=== PATIENT | male | born 1965 | race Hispanic/Latino ===

== ENCOUNTER 2021-01-21 19:47 | Emergency (ER) | payer OTHER ==
[2021-01-21 21:09] LABS: Absolute Lymphocytes (CBC) 1.3 K/uL (0.7-4.9); Basophils % 0.5 % (0-1.3); Hematocrit 40.1 % (39.6-49.0); Lymphocytes % 19.3 % (15.3-44.8); MPV 8.1 fL (7.6-11.3); RBC Red Blood Cell Count 4.71 M/uL (4.33-5.43)
[2021-01-21 21:27] LABS: Protime INR 1.24
[2021-01-21 21:35] LABS: ALT/SGPT 46 U/L (12-78); AST/SGOT 34 U/L (15-37); Albumin 3.6 g/dL (3.4-5.0); Alkaline Phosphatase 73 U/L (45-117); BUN Blood Urea Nitrogen 10 mg/dL (7-18); Bicarbonate 27 mmol/L (21-32); Bilirubin Direct < 0.1 mg/dL (0-0.2); Bilirubin Total 0.3 mg/dL (0.2-1.0); Glucose Level 89 mg/dL (74-106); Magnesium 2.1 mg/dL (1.8-2.4); NT PRO-BNP 33 pg/mL (<125); Potassium 3.4 mmol/L (3.5-5.1); Protein, Total 7.3 g/dL (6.4-8.2); Sodium Level 138 mmol/L (136-145); Troponin (Emerg Dept Use Only) < 0.02 ng/mL (0.0-0.045)
[2021-01-21] MEDS ORDERED: ACETAMINOPHEN 500 MG TAB ONE (22:23)
--- NOTE | 2021-01-21 23:58 | ER ---
Nurse's Notes [facility] Name: Eric Berry Age: 55 yrs Sex: Male : 1965 Arrival Date: 01/21/2021 Time: 19:52 Bed 2 Private MD: Diagnosis: Coronavirus infection, unspecified Presentation: 01/21 20:03 Chief complaint: Patient states: Covid+ 01/21/2021/ S/S started 01/15/2021. Today fever ca1 started and just won't go down. Ibuprofen last taken at 1530. Coronavirus screen: Client denies travel out of the [place] in the last 14 days. At this time, the client does not indicate any symptoms associated with coronavirus-19. Ebola Screen: Patient negative for fever greater than or equal to 101.5 degrees Fahrenheit, and additional compatible Ebola Virus Disease symptoms Patient denies exposure to infectious person. Patient denies travel to an Ebola-affected area in the 21 days before illness onset. No symptoms or risks identified at this time. 20:03 Method Of Arrival: Ambulatory ca1 20:06 Initial Sepsis Screen: Does the patient meet any 2 criteria? No. Patient's initial ca1 sepsis screen is negative. Does the patient have a suspected source of infection? No. Patient's initial sepsis screen is negative. Risk Assessment: Do you want to hurt yourself or someone else? Patient reports no desire to harm self or others. Onset of symptoms was January 21, 2021. 20:06 Acuity: PRESLEY 3 ca1 Historical: - Allergies: 20:06 No Known Allergies; ca1 - Home Meds: 20:06 None [Active]; ca1 - PMHx: 20:06 None; ca1 - PSHx: 20:06 None; ca1 - Immunization history:: Flu vaccine is up to date. - Social history:: Smoking status: Patient denies any tobacco usage or history of. Screenin:03 Abuse screen: Denies threats or abuse. Denies injuries from another. Nutritional rr5 screening: No deficits noted. Tuberculosis screening: No symptoms or risk factors identified. Fall Risk None identified. Total Vidal Fall Scale indicates No Risk (0-24 pts). Assessment: 20:05 General: Appears in no apparent distress. comfortable, Behavior is calm, cooperative, rr5 appropriate for age. Pain: Complains of pain in body Quality of pain is described as aching, Pain began gradually, Is intermittent. Neuro: Level of Consciousness is awake, alert, obeys commands, Oriented to person, place, time. Cardiovascular: Capillary refill < 3 seconds Patient's skin is warm and dry. Respiratory: Reports covid positive Airway is patent Respiratory effort is even, unlabored, Respiratory pattern is regular, symmetrical. GI: No signs and/or symptoms were reported involving the gastrointestinal system. : No signs and/or symptoms were reported regarding the genitourinary system. EENT: No signs and/or symptoms were reported regarding the EENT system. Derm: Skin is intact, is healthy with good turgor, Skin temperature is warm. Musculoskeletal: Circulation, motion, and sensation intact. Capillary refill < 3 seconds, Reports pain in body. 21:00 Reassessment: Patient appears in no apparent distress at this time. Patient and/or rr5 family updated on plan of care and expected duration. Pain level reassessed. Patient is alert, oriented x 3, equal unlabored respirations, skin warm/dry/pink. 22:00 Reassessment: Patient appears in no apparent distress at this time. T 100.2 ED provider rr5 informed with order made and carried out. 23:20 Reassessment: Patient appears in no apparent distress at this time. Patient and/or rr5 family updated on plan of care and expected duration. Pain level reassessed. Patient is alert, oriented x 3, equal unlabored respirations, skin warm/dry/pink. additional orders made and carried out. 01/22 00:03 Reassessment: Patient appears in no apparent distress at this time. Patient is alert, rr5 oriented x 3, equal unlabored respirations, skin warm/dry/pink. discharge instruction given and explained without complaintsmade. Vital Signs: 01/21 20:03 BP 128 / 85; Pulse 92; Resp 18; Temp 98.3; Pulse Ox 98% on R/A; mg2 20:03 Weight 95.25 kg (R); Height 5 ft. 9 in. (175.26 cm) (R); Pain 0/10; ca1 21:38 BP 128 / 78; Pulse 86; Resp 18; Pulse Ox 95% on R/A; mg2 22:02 Temp 100.2(O); mg2 23:13 BP 119 / 76; Pulse 89; Resp 18; Pulse Ox 96% on R/A; mg2 01/22 00:03 BP 120 / 90; Pulse 90; Resp 18; Temp 99.3; Pulse Ox 100% on R/A; mg2 01/21 20:03 Body Mass Index 31.01 (95.25 kg, 175.26 cm) ca1 ED Course: 01/21 19:52 Patient arrived in ED. am4 19:58 Ari Tay, RN is Primary Nurse. rr5 20:05 Patient has correct armband on for positive identification. Placed in gown. Bed in low rr5 position. Call light in reach. Pulse ox on. NIBP on. 20:06 Arm band placed on right wrist. ca1 20:07 Triage completed. ca1 20:09 Clay Moreno MD is Attending Physician. mh7 20:19 No provider procedures requiring assistance completed. mg2 20:40 Inserted saline lock: 20 gauge in right antecubital area, using aseptic technique. mg2 Blood collected. 23:20 Inserted saline lock: 22 gauge in right hand, using aseptic technique. Blood collected. rr5 23:20 First set of blood cultures drawn by me. rr5 01/22 00:04 IV discontinued, intact, bleeding controlled, No redness/swelling at site. Pressure mg2 dressing applied. 12:47 XRAY Chest (1 view) In Process Unspecified. EDMS Administered Medications: 01/21 22:02 Drug: Tylenol 1000 mg Route: PO; mg2 23:58 Follow up: Response: No adverse reaction mg2 23:03 Not Given (Physician Discretion): Tylenol 650 mg PO once mg2 Outcome: 23:57 Discharge ordered by . 7 01/22 00:04 Discharged to home ambulatory. mg2 Condition: good Discharge instructions given to patient, Instructed on discharge instructions, follow up and referral plans. Demonstrated understanding of instructions, follow-up care. 00:04 Patient left the ED. mg2 Signatures: Dispatcher [employer] EDMS Kushal Fisher RN RN mg2 Ari Tay, DOREEN LOGAN rr5 Nargis Goss RN RN ca1 Clay Moreno MD MD Char Cook am4 Corrections: (The following items were deleted from the chart) 01/21 21:39 21:38 BP 128 / 78; Pulse 86bpm; Resp 18bpm; Pulse Ox 94% RA; mg2 mg2
--- NOTE | 2021-01-21 23:58 | EDPHYS ---
Physician Documentation [facility] Name: Eric Berry Age: 55 yrs Sex: Male : 1965 Arrival Date: 01/21/2021 Time: 19:52 Bed 2 Private MD: ED Physician Clay Moreno HPI: 01/21 21:25 This 55 yrs old Male presents to ER via Ambulatory with complaints of COVID+. [facility] 21:25 The patient reports fever, that was measured at 101 degrees Fahrenheit. Onset: The [facility] symptoms/episode began/occurred today. Modifying factors: unaware of sick contact. Associated signs and symptoms: Pertinent positives: cough, that is dry, Pertinent negatives: abdominal pain, altered mental status, arthralgias, backache, chest pain, chills, diarrhea, pulling at ears, earache, headache, hemoptysis, myalgias, nausea, night sweats, runny nose, sinus congestion, sinus drainage, skin rash, shortness of breath, sore throat, swelling, vomiting. 21:26 Severity of symptoms: At their worst the symptoms were moderate today, in the emergency [facility] department the symptoms have improved markedly. States that he tested positive for COVID today at outside facility. Historical: - Allergies: 20:06 No Known Allergies; ca1 - Home Meds: 20:06 None [Active]; ca1 - PMHx: 20:06 None; ca1 - PSHx: 20:06 None; ca1 - Immunization history:: Flu vaccine is up to date. - Social history:: Smoking status: Patient denies any tobacco usage or history of. ROS: 21:26 Eyes: Negative for injury, pain, redness, and discharge, ENT: Negative for injury, mh7 pain, and discharge, Neck: Negative for injury, pain, and swelling, Cardiovascular: Negative for chest pain, palpitations, and edema, Abdomen/GI: Negative for abdominal pain, nausea, vomiting, diarrhea, and constipation, Back: Negative for injury and pain, : Negative for injury, bleeding, discharge, and swelling, MS/Extremity: Negative for injury and deformity, Skin: Negative for injury, rash, and discoloration, Neuro: Negative for headache, weakness, numbness, tingling, and seizure, Psych: Negative for depression, anxiety, suicide ideation, homicidal ideation, and hallucinations, Allergy/Immunology: Negative for hives, rash, and allergies, Endocrine: Negative for neck swelling, polydipsia, polyuria, polyphagia, and marked weight changes, Hematologic/Lymphatic: Negative for swollen nodes, abnormal bleeding, and unusual bruising. Exam: 21:26 Constitutional: This is a well developed, well nourished patient who is awake, alert, mh7 and in no acute distress. Head/Face: Normocephalic, atraumatic. Eyes: Pupils equal round and reactive to light, extra-ocular motions intact. Lids and lashes normal. Conjunctiva and sclera are non-icteric and not injected. Cornea within normal limits. Periorbital areas with no swelling, redness, or edema. Neck: Trachea midline, no thyromegaly or masses palpated, and no cervical lymphadenopathy. Supple, full range of motion without nuchal rigidity, or vertebral point tenderness. No Meningismus. Chest/axilla: Normal chest wall appearance and motion. Nontender with no deformity. No lesions are appreciated. Cardiovascular: Regular rate and rhythm with a normal S1 and S2. No gallops, murmurs, or rubs. Normal PMI, no JVD. No pulse deficits. Respiratory: Lungs have equal breath sounds bilaterally, clear to auscultation and percussion. No rales, rhonchi or wheezes noted. No increased work of breathing, no retractions or nasal flaring. Abdomen/GI: Soft, non-tender, with normal bowel sounds. No distension or tympany. No guarding or rebound. No evidence of tenderness throughout. Back: No spinal tenderness. No costovertebral tenderness. Full range of motion. Skin: Warm, dry with normal turgor. Normal color with no rashes, no lesions, and no evidence of cellulitis. MS/ Extremity: Pulses equal, no cyanosis. Neurovascular intact. Full, normal range of motion. Neuro: Awake and alert, GCS 15, oriented to person, place, time, and situation. Cranial nerves II-XII grossly intact. Motor strength 5/5 in all extremities. Sensory grossly intact. Cerebellar exam normal. Normal gait. Psych: Awake, alert, with orientation to person, place and time. Behavior, mood, and affect are within normal limits. Vital Signs: 20:03 BP 128 / 85; Pulse 92; Resp 18; Temp 98.3; Pulse Ox 98% on R/A; mg2 20:03 Weight 95.25 kg (R); Height 5 ft. 9 in. (175.26 cm) (R); Pain 0/10; ca1 21:38 BP 128 / 78; Pulse 86; Resp 18; Pulse Ox 95% on R/A; mg2 22:02 Temp 100.2(O); mg2 23:13 BP 119 / 76; Pulse 89; Resp 18; Pulse Ox 96% on R/A; mg2 03 00:03 BP 120 / 90; Pulse 90; Resp 18; Temp 99.3; Pulse Ox 100% on R/A; mg2 01/21 20:03 Body Mass Index 31.01 (95.25 kg, 175.26 cm) ca1 MDM: 01/21 23:55 Differential diagnosis: viral Infection, bacterial infection, URI, bronchitis, mh7 pneumonia. Data reviewed: vital signs, nurses notes, lab test result(s), cardiac enzymes, CBC, electrolytes, EKG, radiologic studies, plain films. Data interpreted: Pulse oximetry: on room air is 96 %. Interpretation: normal. Counseling: I had a detailed discussion with the patient and/or guardian regarding: the historical points, exam findings, and any diagnostic results supporting the discharge/admit diagnosis, lab results, radiology results, the need for outpatient follow up. Response to treatment: the patient's symptoms have resolved after treatment, the patient's blood pressure is in an acceptable range, mental status has returned to baseline, the patient no longer shows bradycardia, the patient is not short of breath, the patient is not tachycardic, the patient's pain is gone, the patient's temperature has normalized. 23:57 Patient medically screened. [facility] 01/21 20:27 Order name: Basic Metabolic Panel [facility] 01/21 20:27 Order name: CBC with Diff [facility] 01/21 20:27 Order name: LFT's [facility] 01/21 20:27 Order name: Magnesium [facility] 01/21 20:27 Order name: NT PRO-BNP [facility] 01/21 20:27 Order name: PT-INR [facility] 01/21 20:27 Order name: Troponin (emerg Dept Use Only) [facility] 01/21 21:22 Order name: CBC with Automated Diff; Complete Time: 23:00 EDMS 01/21 21:28 Order name: Protime (+INR); Complete Time: 23:00 [facility] 01/21 21:35 Order name: Basic Metabolic Panel; Complete Time: 23:00 [facility] 01/21 21:35 Order name: Liver (Hepatic) Function; Complete Time: 23:00 [facility] 01/21 21:35 Order name: Troponin (Emerg Dept Use Only); Complete Time: 23:00 [facility] 01/21 21:35 Order name: NT PRO-BNP; Complete Time: 23:00 [facility] 01/21 21:35 Order name: Magnesium; Complete Time: 23:00 [facility] 01/21 20:27 Order name: XRAY Chest (1 view) [facility] 01/21 20:27 Order name: EKG; Complete Time: 20:28 [facility] 01/21 20:27 Order name: Cardiac monitoring; Complete Time: 20:55 [facility] 01/21 20:27 Order name: EKG - Nurse/Tech; Complete Time: 20:55 [facility] 01/21 20:27 Order name: IV Saline Lock; Complete Time: 20:55 [facility] 01/21 20:27 Order name: Labs collected and sent; Complete Time: 20:55 [facility] 01/21 20:27 Order name: O2 Per Protocol; Complete Time: 20:55 [facility] 01/21 20:27 Order name: O2 Sat Monitoring; Complete Time: 20:55 [facility] 01/21 23:01 Order name: Blood Culture Adult (2) [facility] 01/21 23:01 Order name: D-Dimer [facility] 01/21 23:24 Order name: D-Dimer; Complete Time: 23:25 EDMS Administered Medications: 22:02 Drug: Tylenol 1000 mg Route: PO; mg2 23:58 Follow up: Response: No adverse reaction mg2 23:03 Not Given (Physician Discretion): Tylenol 650 mg PO once mg2 Disposition: 01/21/21 23:57 Discharged to Home. Impression: Coronavirus infection, unspecified. - Condition is Stable. - Discharge Instructions: COVID-19. - Medication Reconciliation Form, Thank You Letter, Antibiotic Education, Prescription Opioid Use form. - Follow up: Private Physician; When: 1 - 2 days; Reason: Worsening of condition, Recheck today's complaints, Continuance of care, Re-evaluation by your physician. - Problem is new. - Symptoms have improved. Signatures: Dispatcher [employer] EDMS Kushal Fisher RN RN mg2 Nargis Goss RN RN ca1 Clay Moreno MD MD mh7 Corrections: (The following items were deleted from the chart) 01/22 00:04 01/21 23:57 01/21/2021 23:57 Discharged to Home. Impression: Coronavirus infection, mg2 unspecified. Condition is Stable. Forms are Medication Reconciliation Form, Thank You Letter, Antibiotic Education, Prescription Opioid Use. Follow up: Private Physician; When: 1 - 2 days; Reason: Worsening of condition, Recheck today's complaints, Continuance of care, Re-evaluation by your physician. Problem is new. Symptoms have improved. mh7
[2021-01-22 03:06] VITALS: BP 120/90; TEMP 99.3; O2SAT 100
--- NOTE | 2021-01-22 22:17 | RAD REPORT ---
EXAM DESCRIPTION: RAD - Chest Single View - 01/21/2021 9:25 pm CLINICAL HISTORY: 55 years Male, COUGH COMPARISON: None. TECHNIQUE: Single portable x-ray view of the chest performed on 01/21/2021 at 9:06 PM FINDINGS: The lungs are well expanded and are clear. There is no evidence of a pneumothorax. The cardiac silhouette is normal in size and configuration. The mediastinal contours are normal. No acute osseous abnormality is identified. No acute soft tissue abnormalities are seen. Lines and tubes: None. Free air: None IMPRESSION: No evidence of acute intrathoracic disease. Electronically signed by: Marisela Bob DO 01/21/2021 11:19 PM GMAT TUTOR Due to temporary technical issues with the PACS/Fluency reporting system, reports are being signed by the in house radiologists without review as a courtesy to insure prompt reporting. The interpreting radiologist is fully responsible for the content of the report.
== END 2021-01-22 00:04 | disposition home or self-care (01) ==
LOC: ER 19:47
DX: U07.1 COVID-19 (principal)
CPT/HCPCS: 36415; 71045; 80048; 80076; 83735; 83880; 84484; 85025; 85379; 85610; 87040; 93005; 99284

== ENCOUNTER 2022-06-05 20:10 | Emergency (ER) | payer OTHER ==
--- NOTE | 2022-06-05 21:03 | RAD REPORT ---
EXAM DESCRIPTION: CT - Stone Protocol - 06/05/2022 8:48 pm CLINICAL HISTORY: Abdominal pain. Left flank pain COMPARISON: None. TECHNIQUE: Computed axial tomography of the abdomen pelvis was obtained without oral or IV contrast. Lack of IV and oral contrast limits evaluation of solid organs, appendix, bowel, and vessels. Boyce l reformatted images were obtained and reviewed. All CT scans are performed using dose optimization technique as appropriate and may include automated exposure control or mA/KV adjustment according to patient size. FINDINGS: Tiny right renal calculi. No hydronephrosis. A left renal calculus is not seen. An ureteral calculus is not noted. A bladder calculus is not prese nt. Fatty liver The spleen, pancreas and adrenals appear grossly normal There is no evidence of diverticulitis. The appendix appears normal Moderate right and small left inguinal hernias contain fat Small umbilical hernia Several small sclerotic foci right femoral head Spondylosis L5-S1 IMPRESSION: Tiny nonobstructing right renal calculi Several small sclerotic foci right femoral head are nonspecific. Follow-up x-ray in 3 months recommen ded to assess stability
[2022-06-05 21:24] LABS: Urine Blood Trace-intact (Negative); Urine Glucose Negative (Negative); Urine Protein Negative (Negative)
[2022-06-05 21:30] LABS: Absolute Lymphocytes (CBC) 2.8 K/uL (0.7-4.9); Hematocrit 44.2 % (39.6-49.0); Lymphocytes % 31.5 % (15.3-44.8); MPV 7.5 fL (7.6-11.3)
[2022-06-05 21:46] LABS: Albumin 3.9 g/dL (3.4-5.0); Bilirubin Total 0.3 mg/dL (0.2-1.0); Potassium 4.1 mmol/L (3.5-5.1); Protein, Total 7.6 g/dL (6.4-8.2)
--- NOTE | 2022-06-05 23:39 | ER ---
Nurse's Notes [facility] Name: Eric Berry Age: 57 yrs Sex: Male : 1965 Arrival Date: 06/05/2022 Time: 20:19 Bed 16 Private MD: Diagnosis: Flank Pain Presentation: 06/05 20:20 Chief complaint: Intermittent left flank pain and nausea since this morning. Hx of hb kidney stones. Coronavirus screen: At this time, the client does not indicate any symptoms associated with coronavirus-19. Ebola Screen: No symptoms or risks identified at this time. Initial Sepsis Screen: Does the patient meet any 2 criteria? No. Patient's initial sepsis screen is negative. Does the patient have a suspected source of infection? No. Patient's initial sepsis screen is negative. Risk Assessment: Do you want to hurt yourself or someone else? Patient reports no desire to harm self or others. Onset of symptoms was June 05, 2022. 20:20 Method Of Arrival: Ambulatory 20:20 Acuity: PRESLEY 3 hb Triage Assessment: 23:59 General: Appears in no apparent distress. GI: Reports nausea. sm5 Historical: - Allergies: 20:21 No Known Allergies; hb - PMHx: 20:21 kidney stones; hb - PSHx: 20:21 renal stents; hb - Immunization history:: Adult Immunizations up to date. - Social history:: Smoking status: Patient denies any tobacco usage or history of. Screenin:23 Abuse screen: Denies threats or abuse. Denies injuries from another. Nutritional ld1 screening: No deficits noted. Tuberculosis screening: No symptoms or risk factors identified. Fall Risk None identified. Assessment: 21:23 General: Appears in no apparent distress. comfortable, Behavior is calm, cooperative, ld1 appropriate for age. Pain: Complains of pain in low back area Pain does not radiate. Pain currently is 8 out of 10 on a pain scale. Neuro: Level of Consciousness is awake, alert, obeys commands, Oriented to person, place, time, situation. Cardiovascular: Capillary refill < 3 seconds Patient's skin is warm and dry. Respiratory: Airway is patent Respiratory effort is even, unlabored. GI: Abdomen is flat, non-distended. : No signs and/or symptoms were reported regarding the genitourinary system. EENT: No signs and/or symptoms were reported regarding the EENT system. Derm: No signs and/or symptoms reported regarding the dermatologic system. Musculoskeletal: No signs and/or symptoms reported regarding the musculoskeletal system. 23:58 Reassessment: No changes from previously documented assessment. Patient and/or family 5 updated on plan of care and expected duration. Pain level reassessed. Vital Signs: 20:20 BP 147 / 100; Pulse 89; Resp 16; Temp 99; Pulse Ox 98% on R/A; Weight 104.33 kg; Height hb 5 ft. 9 in. (175.26 cm); Pain 3/10; 21:23 BP 132 / 99; Pulse 86; Resp 18; Pulse Ox 99% on R/A; ld1 23:58 BP 120 / 79; Pulse 81; Resp 18; Pulse Ox 100% on R/A; sm5 20:20 Body Mass Index 33.96 (104.33 kg, 175.26 cm) hb ED Course: 20:19 Patient arrived in ED. hb 20:21 Triage completed. hb 20:21 Arm band placed on. hb 20:23 [facility] kb 20:24 Satish Castellano MD is Attending Physician. kb 20:49 CT Stone Protocol In Process Unspecified. EDMS 21:23 Keturah Dsouza, DOREEN is Primary Nurse. ld1 21:23 Patient has correct armband on for positive identification. Placed in gown. Bed in low ld1 position. Call light in reach. Side rails up X2. insulation board head saw operator on. Pulse ox on. NIBP on. Door closed. Noise minimized. Warm blanket given. 21:23 No provider procedures requiring assistance completed. Inserted saline lock: 20 gauge ld1 in right antecubital area, using aseptic technique. Blood collected. 23:59 IV discontinued, intact, bleeding controlled, No redness/swelling at site. Pressure sm5 dressing applied. Administered Medications: 23:51 Drug: Ketorolac 15 mg Route: IVP; Site: right antecubital; sm5 23:59 Follow up: Response: No adverse reaction 5 23:55 Drug: Zofran (Ondansetron) 4 mg Route: IVP; Site: right antecubital; sm5 23:59 Follow up: Response: No adverse reaction 5 Medication: 21:23 VIS not applicable for this client. ld1 Outcome: 23:38 Discharge ordered by . kathie 23:58 Discharged to home ambulatory. sm5 23:58 Condition: stable 23:58 Discharge instructions given to patient, Instructed on discharge instructions, follow up and referral plans. medication usage, Demonstrated understanding of instructions, follow-up care, medications, Prescriptions given X 2. 06/06 00:00 Patient left the ED. sm5 Signatures: Dispatcher [employer] EDMS Maddy Burnette, TAG STRINGER-C TAG STRINGER-Sridevi Lund, RN RN Keturah Dsouza RN RN ld1 Doretha Miller RN RN sm5
--- NOTE | 2022-06-05 23:39 | EDPHYS ---
Physician Documentation [facility] Name: Eric Berry Age: 57 yrs Sex: Male : 1965 Arrival Date: 06/05/2022 Time: 20:19 Bed 16 Private MD: ED Physician Satish Castellano HPI: 06/06 01:02 This 57 yrs old Male presents to ER via Ambulatory with complaints of Flank kb Pain, Nausea. 01:02 The patient complains of pain in the left flank. The pain does not radiate. Onset: The kb symptoms/episode began/occurred this morning. Modifying factors: The symptoms are alleviated by nothing. the symptoms are aggravated by nothing. Associated signs and symptoms: The patient has no apparent associated signs or symptoms. Severity of pain: At its worst the pain was moderate in the emergency department the pain is unchanged. The patient has experienced similar episodes in the past. The patient has not recently seen a physician. Pt reports left flank pain and nausea that started this morning. States he has a history of kidney stones and believes he has one again. Historical: - Allergies: 06/05 20:21 No Known Allergies; hb - PMHx: 20:21 kidney stones; hb - PSHx: 20:21 renal stents; hb - Immunization history:: Adult Immunizations up to date. - Social history:: Smoking status: Patient denies any tobacco usage or history of. ROS: 06/06 01:02 Constitutional: Negative for fever, chills, and weight loss. kb Abdomen/GI: Positive for nausea, Negative for abdominal pain, vomiting, diarrhea. : Positive for flank pain. All other systems are negative. Exam: 01:04 Constitutional: This is a well developed, well nourished patient who is awake, alert, kb and in no acute distress. Head/Face: Normocephalic, atraumatic. ENT: Moist Mucous membranes Cardiovascular: Regular rate and rhythm with a normal S1 and S2. No gallops, murmurs, or rubs. No pulse deficits. Respiratory: Respirations even and unlabored. No increased work of breathing. Talking in full sentences Abdomen/GI: Soft, non-tender. No distention Skin: Warm, dry with normal turgor. Normal color. MS/ Extremity: Pulses equal, no cyanosis. Neurovascular intact. Full, normal range of motion. Neuro: Awake and alert, GCS 15, oriented to person, place, time, and situation. Moves all extremities. Normal gait. Psych: Awake, alert, with orientation to person, place and time. Behavior, mood, and affect are within normal limits. 01:04 Back: pain, that is moderate, CVA tenderness, that is moderate, is noted on the left. Vital Signs: 06/05 20:20 BP 147 / 100; Pulse 89; Resp 16; Temp 99; Pulse Ox 98% on R/A; Weight 104.33 kg; Height hb 5 ft. 9 in. (175.26 cm); Pain 3/10; 21:23 BP 132 / 99; Pulse 86; Resp 18; Pulse Ox 99% on R/A; ld1 23:58 BP 120 / 79; Pulse 81; Resp 18; Pulse Ox 100% on R/A; sm5 20:20 Body Mass Index 33.96 (104.33 kg, 175.26 cm) hb MDM: 20:24 Patient medically screened. kb 06/06 01:02 Data reviewed: vital signs, nurses notes. Data interpreted: Pulse oximetry: on room air kb is 100 %. Interpretation: normal. Counseling: I had a detailed discussion with the patient and/or guardian regarding: the historical points, exam findings, and any diagnostic results supporting the discharge/admit diagnosis, lab results, radiology results, the need for outpatient follow up, a family practitioner, to return to the emergency department if symptoms worsen or persist or if there are any questions or concerns that arise at home. 06/05 20:24 Order name: CBC with Diff; Complete Time: 21:56 kb 06/05 20:24 Order name: CMP; Complete Time: 21:56 kb 06/05 20:24 Order name: Lipase; Complete Time: 21:56 kb 06/05 20:24 Order name: CT Stone Protocol; Complete Time: 21:10 kb 06/05 21:24 Order name: Urine Dipstick-Ancillary; Complete Time: 21:27 EDMS 06/05 20:24 Order name: IV Saline Lock; Complete Time: 21:23 kb 06/05 20:24 Order name: Labs collected and sent; Complete Time: 21:23 kb 06/05 20:24 Order name: Urine Dipstick-Ancillary (obtain specimen); Complete Time: 21:23 kb Administered Medications: 06/05 23:51 Drug: Ketorolac 15 mg Route: IVP; Site: right antecubital; sm5 23:59 Follow up: Response: No adverse reaction 5 23:55 Drug: Zofran (Ondansetron) 4 mg Route: IVP; Site: right antecubital; sm5 23:59 Follow up: Response: No adverse reaction 5 Disposition: 06/06 04:24 Co-signature as Attending Physician, Satish Castellano MD. rn Disposition Summary: 06/05/22 23:38 Discharge Ordered Location: Home kb Condition: Stable kb Diagnosis - Flank Pain kb Followup: kb - With: Emergency Department - When: As needed - Reason: Worsening of condition Followup: kb - With: Private Physician - When: 2 - 3 days - Reason: Recheck today's complaints, Continuance of care, Re-evaluation by your physician Discharge Instructions: - Discharge Summary Sheet kb - Flank Pain, Adult, [id number] kb Forms: - Medication Reconciliation Form kb - Work release form kb - Thank You Letter kb - Antibiotic Education kb - Prescription Opioid Use kb Prescriptions: - Diclofenac Sodium 75 mg Oral tablet,delayed release (DR/EC) - take 1 tablet by ORAL route 2 times per day As needed; 30 tablet; Refills: 0, kb Product Selection Permitted - Zofran 4 mg Oral Tablet - take 1 tablet by ORAL route every 6 hours As needed; 20 tablet; Refills: 0, kb Product Selection Permitted Signatures: Dispatcher [employer] Maddy Antonio FNP-C FNP-Satish Spencer MD MD rn Baxter, Heather, RN RN hb Mazur, Sarah, RN RN 5
[2022-06-05] MEDS ORDERED: KETOROLAC 30 MG/ML INJ ONE (23:52)
[2022-06-06] MEDS ORDERED: ONDANSETRON 4 MG/2 ML VIAL ONE (00:01)
[2022-06-06 00:22] VITALS: TEMP 99
[2022-06-06 00:25] VITALS: BP 120/79; O2SAT 100
--- OUTSIDE RECORDS SUMMARY | 2022-06-08 13:21 | XMS REPORT | Continuity of Care Document ---
:1965 Author Organization [facility] t Address [address] [place] [address] Care Team Providers Name Role Phone Pcp, Patient Does Not Have A Primary Care Physician [id number] Sameer LOGAN, D Attending Clinician Unavailable Only, Test Attending Clinician Unavailable Reginald ROBLES, A Attending Clinician REGINALD, Wilma Attending Clinician Unavailable Doctor Unassigned, Name Attending Clinician Unavailable Payers Payer Name Policy Type Policy Number Effective Date Expiration Date Skyler COLLINS 2 [id number] 2021 00:00:00 Problems This patient has no known problems. Allergies, Adverse Reactions, Alerts Allergy Allergy Status Severity Reaction(s) Onset Inactive Treating Comm ents Source Name Type Date Date Clinician NO KNOWN Drug Active [facility] Class ity of [facility] Social History Social Habit Start Date Stop Date Quantity Comments Source Sex Assigned At [birth year] [facility] 00:00:00 00:00:00 [facility] Branch Smoking Status Start Date Stop Date Source Unknown if ever smoked [facility] Medications This patient has no known medications. Procedures Procedure Date / Time Performed Performing Clinician [facility] e ASSIGNMENT OF BENEFITS 2021-07-30 13:01:12 Doctor Unassigned, No [facility] Branch Encounters Start End Encounter Admission Attending Care Care Encounter Source Date/Time Date/Time Type Type Clinicians Facility Department ID 2021-12-28 2021-12-28 Outpatient TESSIE MESA [id number] Tessie 12:30:00 12:30:00 Seybol d 2021-12-28 2021-12-28 Outpatient TESSIE MESA [id number] Tessie 12:25:00 12:25:00 Seybol d 2021-07-31 2021-07-31 Telephone SARAH Estrella [id number] Univers 00:00:00 00:00:00 Danielle PALACIOS [id number] i ty of [facility] [id number] [place] as [phone] [facility] 019 Branch 2021-07-30 2021-07-30 Laboratory Only, Adc Test [facility] [id number] Univers 08:05:29 08:20:29 Only Walt Montelongo [id number] ity [facility] [id number] [facility] [phone] [facility] 353 Branch 2021-07-30 2021-07-30 Outpatient Sabra MONTELONGO [facility] [id number] Univers 08:15:00 08:15:00 WALT gracia of [facility] 2021-07-30 2021-07-30 Orders Doctor SARAH [id number] Univers 00:00:00 00:00:00 Only Unassigned, PHILIP [id number] ity of [place] [facility] [id number] [place] as [phone] [facility] 009 Branch Results This patient has no known results.
== END 2022-06-06 | disposition home or self-care (01) ==
LOC: ER 20:10
DX: R10.9 Unspecified abdominal pain (principal); R11.0 Nausea; Z87.442 Personal history of urinary calculi
CPT/HCPCS: 85025; 36415; 81003; 83690; 80053; 76377; 74176; 96375; 96374; 99284; J2405

== ENCOUNTER 2025-03-04 07:03 | Day surgery (SDC) | payer OTHER ==
[2025-03-04 07:43] LABS: Absolute Basophils 0.1 K/uL (0-0.5); Absolute Eosinophils 0.8 K/uL (0-0.5); Absolute Lymphocytes (CBC) 3.3 K/uL (0.7-4.9); Absolute Neutrophil 4.3 K/uL (1.8-8.0); Eosinophils % 8.3 % (0-4.4); Hematocrit 42.5 % (39.6-49.0); Hemoglobin 14.1 g/dL (13.6-17.9); Lymphocytes % 35.1 % (15.3-44.8); MCH 28.1 pg (27.0-35.0); MCHC 33.3 g/dL (32.0-36.0); MCV 84.3 fL (80-100); MPV 7.7 fL (7.6-11.3); Monocytes % 10.5 % (3.3-12.3); Neutrophils % 45.1 % (41.7-73.7); Nucleated Red Blood Cells % 0.1 % (0-0); Platelets 337 thou/uL (152-406); RBC Red Blood Cell Count 5.04 M/uL (4.33-5.43); Red Cell Distribution Width 14.3 % (12.1-15.2)
[2025-03-04] MEDS: Ringers Lactate 1,000 ML IV ONE ×2 (07:50→10:00)
[2025-03-04 08:01] LABS: Anion Gap 11.1 mEq/L (5.0-15.0); Potassium 4.1 mEq/L (3.5-5.1)
[2025-03-04] MEDS ORDERED: ONDANSETRON 4 MG/2 ML VIAL ONE (08:42)
[2025-03-04] MEDS ORDERED: LIDOCAINE 1% MPF 5 ML VIAL ONE (08:42)
[2025-03-04] MEDS ORDERED: KETOROLAC 30 MG/ML INJ ONE (08:42)
[2025-03-04] MEDS ORDERED: propofoL 200 MG/20 ML VIAL IV ONE (08:42)
[2025-03-04] MEDS ORDERED: FENTANYL CITR 100 MCG/2 ML ONE (08:43)
[2025-03-04] MEDS ORDERED: ROCURONIUM 50 MG/5 ML VIAL IV ONE (08:43)
[2025-03-04] MEDS ORDERED: MIDAZOLAM HCL 2 MG/2 ML INJ ONE (08:43)
[2025-03-04] MEDS: CEFAZOLIN SODIUM 1 GM/VIAL ONE (09:25)
--- NOTE | 2025-03-04 09:56 | RAD REPORT ---
EXAMINATION: TWO VIEW CHEST XR CLINICAL INDICATION: Male, 59 years old. [facility] MAIN pre-op. Hypertension TECHNIQUE: 2 view radiographs of the chest were performed. COMPARISON: 03/21/2021. FINDINGS: The lungs are well inflated and clear. No pneumothorax or sizable effusion. The heart is normal in si ze. Mediastinal contours are unremarkable. IMPRESSION: No acute or significant abnormalities.
[2025-03-04] MEDS: MEPERIDINE HCL 25 MG/ML SYR ONE (11:16)
--- NOTE | 2025-03-04 11:24 | P.BOP ---
Preoperative diagnosis: tender large inguinal hernia incarcerated Postoperative diagnosis: same Primary procedure: Open repair of incarcerated inguinal hernia with mesh Estimated blood loss: <10cc Specimen: hernia sac Findings: unable to reduce hernia laparoscopically. Anesthesia: General Complications: None Implants: medium mesh and plug Transferred to: Recovery Room Condition: Good
[2025-03-04] MEDS: HYDROMORPHONE HCL 1 MG/ML INJ ONE (11:40)
[2025-03-04] MEDS ORDERED: HYDROMORPHONE HCL 1 MG/ML INJ ONE (11:41)
[2025-03-04] MEDS: ONDANSETRON 4 MG/2 ML VIAL ONE ×2 (11:43→12:40)
[2025-03-04] MEDS: PROMETHAZINE INJ 25 MG/ML AMP ONE (11:56)
[2025-03-04] MEDS: METOCLOPRAMIDE 10 MG/2mL INJ ONE (13:26)
[2025-03-04] MEDS: TRAMADOL 37.5mg/APAP 325mg PER TAB ONE (14:01)
[2025-03-04 14:17] VITALS: BP 160/67; TEMP 97.4; O2SAT 99
== END 2025-03-04 14:55 | disposition home or self-care (01) ==
LOC: OR 07:03
PROVIDERS: ATTEND Surgery
PROC: 0YU50JZ Supplement Right Inguinal Region with Synthetic Substitute, Open Approach (ICD-10-PCS; principal; 2025-03-04 10:45)
DX: K40.30 Unilateral inguinal hernia, with obstruction, without gangrene, not specified as recurrent (principal); G47.30 Sleep apnea, unspecified
CPT/HCPCS: 49507; 93005; 85025; 80048; 36415; 88302; 71046; J2550; J2704; J2765; J2003; J2250; J3010; J2175; J1171; J2405 ×3; J7120 ×2; J0690